=== PATIENT | male | born 1980 | race Caucasian/White ===

== ENCOUNTER 2023-06-06 08:30 | Emergency (ER) | payer OTHER, SELFPAY ==
[2023-06-06 08:35] VITALS: BP 146/95; PULSE 97; RESP 16; TEMP 37; O2SAT 98; BMI 25.8
--- NOTE | 2023-06-06 10:07 | ED.GENADULT ---
HPI - General Adult General Chief complaint: General Medical Stated complaint: unable to sleep Time Seen by Provider: 06/06/23 09:50 Source: patient and RN notes reviewed Mode of arrival: ambulatory Limitations: no limitations History of Present Illness HPI narrative: This is a 43-year-old male, with no known past medical history presenting to the department for evaluation of difficulty sleeping x5 days. Patient states that he was stung by a bee on his left upper arm while attending the be 5 days ago. He states that he took 4 tablets of Benadryl. He states that since then he has had significant difficulty with sleeping. He states that the difficulty is with falling asleep and staying asleep. He states that he is unable to turn off the thoughts in his head, and also states that he gets restless legs. He admits to having some increased stressors reporting a recent break-up. He also reports that he has been drinking lots of water which has causing him to have increased urination. He states urinary frequency, denies any dysuria, hematuria, or urgency. Denies history of urinary tract infections. Denies any penile discharge or rashes. He states that he was previously sexually active, last sexual encounter was 6 months ago. Denies any fevers, chills, weight changes, chest pain, shortness breath, abdominal pain, nausea, vomiting or diarrhea. He admits to having some palpitations throughout the night. No other complaints or concerns at this time. MD complaint: Insomnia Onset (ago): day(s) Radiation: non-radiation Relieving factors: none Exacerbating factors: none Associated symptoms: denies other symptoms Treatments prior to arrival: none Related Data Previous Rx's Medication Instructions Recorded hydroxyzine HCl 50 mg tablet 50 mg PO BEDTIME PRN insomnia #20 06/06/23 tabs Allergies Allergy/AdvReac Type Severity Reaction Status Date / Time No Known Allergies Allergy Verified 06/06/23 08:35 Review of Systems Review of Systems: Yes all other systems are reviewed and are negative Constitutional: Constitutional: Reports as per [facility] Past Medical History Attestation statement: The following information was validated with the patient. Social History Social History Advance Directives: No Physical Exam ED Vital Signs: Vital Signs - 24 hr 06/06/23 08:35 06/06/23 12:10 Temperature 98.6 F 98.4 F Pulse Rate 97 77 Respiratory Rate 16 16 Blood Pressure 146/95 H 131/82 Pulse Oximetry 98 97 Oxygen Delivery Method Room Air Room Air BMI result Body Mass Index 25.8 Const General: cooperative, comfortable and no acute distress Orientation/consciousness: patient oriented x3 Limitations: no limitations HENMT Head: Yes normal to inspection, Yes normocephalic and Yes atraumatic Ears: hearing grossly normal bilaterally General nose exam: Normal external nose present Face and sinus: Yes normal facial exam Mouth: Normal oral and palatal mucosa present, oropharynx normal and moist mucous membranes Throat: Yes posterior oropharynx normal Eyes General: appearance normal, both eyes and all related structures Eyelids: Yes eyelids normal Conjunctivae: conjunctivae normal Sclerae: sclerae normal Pupils: Equal, round and reactive pupils present EOM: EOMs intact bilaterally Neck Neck: Yes normal visual inspection, Yes full ROM and Yes no lymphadenopathy Lymphatic: no lymphadenopathy noted Chest Chest palpation & inspection: normal inspection of the chest Resp Effort & Inspection: normal respiratory effort and able to speak in complete sentences Auscultation: clear to auscultation bilaterally, no crackles, no rales, no rhonchi and no wheezes Cardio Rate: regular rate Rhythm: regular rhythm Heart sounds: S1 normal heart sound present and S2 normal heart sound present GI Inspection: Yes normal to inspection General: Yes no CVA tenderness Back/Spine/Pelvis Back: no CVA tenderness Skin General skin exam: no rashes or lesions noted Trauma: no lacerations or abrasions Wounds: no wounds Neuro General: patient oriented x3 and moves all extremities Cranial nerves: Yes Equal, round and reactive pupils present Extrem General: Yes normal to inspection Right upper extremity: normal to inspection Left upper extremity: normal to inspection Right lower extremity: normal to inspection Left lower extremity: normal to inspection Course Reevaluation(s) Reevaluation #1: EKG normal, urine without any evidence of infection, labs within normal limits, patient tested negative for chlamydia gonorrhea. Symptoms of insomnia are unclear however given extensive sleep hygiene techniques as well as hydroxyzine. Encouraged to follow-up with primary care physician regarding this visit, encouraged to call today. Discussed return precautions. Patient understands and agrees with plan. Patient stable for discharge. Time: 12:20 Medical Decision Making Medical Decision Making MDM Narrative: 43-year-old male presenting to the emergency department for evaluation of difficulty sleeping for the last 5 days. He states this all began after taking 4 tablets of Benadryl 5 days ago after being stung by a bee. He states trouble with falling asleep and staying asleep. He also endorses palpitations, denies any chest pain. On examination, patient with normal affect. Blood pressure mildly elevated at 140 6/95, all other vital signs within normal limits. Differential diagnoses include electrolyte abnormality, adverse medication reaction, anxiety, hyperthyroid. ACS unlikely however given palpitations will obtain troponin and EKG. Also reporting urinary frequency - will obtain UA for further evaluation. Also testing for any gc/chlamydia. Differential Diagnosis Differential Diagnoses: The differential diagnosis associated with the presentation includes See above Lab Data MDM Lab Attestation statement: I reviewed the patient's lab results. No leukocytosis. Electrolytes within normal limits. 06/06/23 08:44 06/06/23 08:44 Labs: Lab Results 06/06/23 06/06/23 Range/Units 08:44 10:29 WBC 8.8 (4.8-10.8) X10*3/uL RBC 5.97 H (4.60-5.80) X10*6/uL Hgb 18.2 H (14.0-18.0) g/dl Hct 51.8 (42.0-52.0) % MCV 86.8 (80.0-98.0) fL MCH 30.5 (27.0-33.0) pg MCHC 35.1 (31.0-36.0) g/dl RDW 11.6 (11.0-16.0) % Plt Count 270 (160-400) X10*3/uL MPV 9.2 L (9.4-12.4) fL Immature Gran % (Auto) 0.2 (0.0-0.4) % Neut % (Auto) 72.3 (45-73) % Lymph % (Auto) 14.3 L (20-40) % [place] % (Auto) 10.9 (2-11) % Eos % (Auto) 1.5 (0-4) % Baso % (Auto) 0.8 (0-2) % Lymph # (Auto) 1.3 (1.2-4.9) X10*3/uL [place] # (Auto) 1.0 (0.1-1.2) X10*3/uL Eos # (Auto) 0.1 (0.0-0.4) X10*3/uL Baso # (Auto) 0.1 (0.0-0.2) X10*3/uL Abs Immat Gran (auto) 0.02 (0.00-0.03) X10*3/uL Absolute Neuts (auto) 6.4 (2.0-8.3) x10*3/uL Absolute Nucleated RBC 0.000 (0.0-0.012) X10*3/uL Nucleated RBC % (auto) 0.0 (0.0-0.2) /100WBC Sodium 137 (135-145) mmol/L Potassium 4.3 (3.3-5.1) mmol/L Chloride 100 (96-108) mmol/L Carbon Dioxide 25 (22-29) mmol/L Anion Gap 16 (12-20) BUN 12 (9-16) mg/dL Creatinine 0.83 (0.5-1.4) mg/dL Estim Creat Clear Calc 124.7 Estimated GFR > 60 Random Glucose 84 (60-115) mg/dL Calcium 9.9 (8.4-10.2) mg/dL Troponin I High Sens < 2.7 (<3.5-35.0) ng/L TSH 2.42 (0.32-4.0) uIU/mL Urine Color Yellow Urine Appearance Clear Urine pH 7.0 (5.0-9.0) Ur Specific [place] <= 1.005 (1.005-1.025) Urine Protein Negative (Neg-Trace) mg/dL Urine Glucose (UA) Negative (Negative) mg/dL Urine Ketones Negative (Negative) mg/dL Urine Blood Negative (Negative) Urine Nitrite Negative (Negative) Ur Leukocyte Esterase Negative (Negative) Chlam trachomat DNA PCR NOT DETECTED (Not Detect.) N.gonorrhoeae DNA (PCR) NOT DETECTED (Not Detect.) Independent Interpretation I performed an independent interpretation of an: EKG Interpretation: Normal sinus rhythm at a ventricular rate of 78 beats per minute, TX interval 162, QTC 405. No ST elevation or depression. External Record Review External record reviewed: Inpatient record, Office record, Outpatient record, Prior outpatient labs, Prior outpatient radiology, Primary care record and Outside ED record Discharge Plan Discharge Clinical Impression: Insomnia Qualifiers: Insomnia type: unspecified Qualified Code(s): G47.00 - Insomnia, unspecified Patient Disposition: Home, Self-Care Instructions: Insomnia (ED) Additional Instructions: You were seen at the emergency department due to difficulty sleeping and restless legs. Your work up today was reassuring. Your urine does not appear to be infected, you tested negative for gonorrhea/chlamydia. Your EKG was normal. Your thyroid levels were within normal limits. Please drink plenty of fluids, exercise. Practice good sleep hygiene techniques including limited screen time use prior to bed, using bedroom for sleep purposes only, avoid caffeine intake. Please follow-up with your primary care physician, call today to make an appointment. Please use prescribed medication as directed - I would advise you to take this medication tonight rather than mid day to encourage your sleep cycle to be back on track. If any new or worsening symptoms occur including but not limited to chest pain, worsening palpitations, please return for re-evaluation. Prescriptions: New hydroxyzine HCl 50 mg tablet 50 mg PO BEDTIME PRN (Reason: insomnia) Qty: 20 0RF
[2023-06-06 12:10] VITALS: BP 131/82; PULSE 77; RESP 16; TEMP 36.9; O2SAT 97
== END 2023-06-06 12:29 | disposition home or self-care (01) ==
PROVIDERS: Emergency Provider Emergency Medicine; PCP Internal Medicine
DX: G47.00 Insomnia, unspecified (principal); R94.31 Abnormal electrocardiogram [ECG] [EKG]; Z79.899 Other long term (current) drug therapy
CPT/HCPCS: 0353U; 36415; 80048; 81003; 84443; 84484; 85025; 93005; 99283; 99284

== ENCOUNTER 2023-06-11 13:57 | Emergency (ER) | payer OTHER, SELFPAY ==
[2023-06-11 14:10] VITALS: BP 133/85; BP 142/80; PULSE 95; PULSE 96; RESP 16; TEMP 37.1; O2SAT 100; O2SAT 97; BMI 25.8
--- NOTE | 2023-06-11 14:12 | ED.GENADULT ---
HPI - General Adult General Chief complaint: General Medical Stated complaint: RESTLESS LEG SYNDROME Time Seen by Provider: 06/11/23 14:57 Source: patient, EMS and RN notes reviewed Mode of arrival: EMS Limitations: no limitations History of Present Illness HPI narrative: Patient is a 43-year-old male with no reported past medical history presenting the emergency department with mother and sister with complaint of insomnia for the past 11 days. He also complains of a warm sensation in his left arm when he moves it. He denies pain, numbness, tingling, weakness to his left arm. He denies any chest pain or shortness of breath. He reports that symptoms began after being stung by a bee, following that he used Benadryl and states that since that time he has not been able to sleep. He was seen in this emergency department on 06/06 and prescribed hydroxyzine. He states that he has used this each night since being evaluated here and has still been unable to sleep. Patient states that he contacted his PCP but was told he could not be seen any time soon. Patient stating that he feels as though he is having a heart attack because I can smell my arm burning. He denies any suicidal or homicidal ideation. He denies any auditory or visual hallucinations. States that he has never previously seen a therapist or psychiatrist. Sister reports that patient has had increasingly bizarre behavior over the past 11 days. MD complaint: insomnia Onset (ago): week(s) Location: left and upper extremity Radiation: non-radiation Severity: moderate Quality: other ( warm sensation ) Associated symptoms: denies other symptoms Treatments prior to arrival: other (hydroxyzine) Related Data Previous Rx's Medication Instructions Recorded hydroxyzine HCl 50 mg tablet 50 mg PO BEDTIME PRN insomnia #20 06/06/23 tabs Allergies Allergy/AdvReac Type Severity Reaction Status Date / Time No Known Allergies Allergy Verified 06/06/23 08:35 Review of Systems Review of Systems: As per HPI. Yes all other systems are reviewed and are negative Constitutional: Constitutional: Reports as per HPI [facility] Social History Social History Advance Directives: No Advance Directives Information Provided: Yes Physical Exam ED Vital Signs: Vital Signs - 24 hr 06/11/23 14:10 Temperature 98.8 F Pulse Rate 96 Respiratory Rate 16 Blood Pressure 133/85 Pulse Oximetry 97 Oxygen Delivery Method Room Air BMI result Body Mass Index 25.8 Vital signs have been reviewed and appear to be correct. Blood pressure normal. Heart rate normal. Respiratory rate normal. Temperature normal. Oxygen saturation normal. Const General: cooperative, healthy appearing and no acute distress Orientation/consciousness: oriented to person, oriented to place, oriented to time and patient oriented x3 Limitations: no limitations HENMT Head: Yes normocephalic and Yes atraumatic Ears: external ears normal General nose exam: Normal external nose present Face and sinus: Yes face symmetric Mouth: oropharynx normal and moist mucous membranes Throat: Yes uvula midline Eyes Pupils: Equal, round and reactive pupils present Neck Neck: Yes normal visual inspection and Yes supple Resp Effort & Inspection: normal respiratory effort and able to speak in complete sentences Auscultation: clear to auscultation bilaterally Cardio Rate: regular rate Rhythm: regular rhythm Heart sounds: S1 normal heart sound present and S2 normal heart sound present GI Palpation (GI): Soft to palpation and nontender Auscultation: normoactive bowel sounds General: Yes no CVA tenderness Back/Spine/Pelvis Back: no CVA tenderness Skin General skin exam: elasticity normal and turgor normal Neuro General: oriented to person, oriented to place, oriented to time, patient oriented x3, moves all extremities, no focal motor deficits and CN's II-XI intact bilaterally Cranial nerves: Yes Equal, round and reactive pupils present Cognition (Neuro): normal cognition Extrem General: Yes full ROM, Yes no pedal edema and Yes no calf tenderness Psych Appearance: grossly normal Mental Status: mental status grossly normal Speech and movement: Normal speech and movement present Affect: normal affect Attitude: cooperative Thought process: Illogical thought process present Thought content: suicidality, no homicidality and Hallucination(s) present tactile (Stating that he feels as though he is having a heart attack because he can feel the skin on his arm burning) Insight: Fair insight present (Psych) Judgement: Fair judgement present (Psych) Course Course Course Narrative: This is a rapid medical exam. Deferred additional HPI, ROS, PE to primary provider. 43 yo male here with complaints of difficulty sleeping x 11 days. Seen here for 06/06 for same and prescribed prn hydroxzyine but feels this is not helping. Does not have a PCP to follow-up with. NO SI/HI. VSS Reevaluation(s) Reevaluation #1: 06/11/2023 1919: Patient and family requesting the patient to be discharged. Patient continues to decline HI/SI. Patient cleared for discharge. Medical Decision Making Medical Decision Making [facility] Narrative: Patient is a 43-year-old male with no reported past medical history presenting the emergency department with mother and sister with complaint of insomnia for the past 11 days. On exam patient is awake, A+Ox3, VS WNL, afebrile, normal neurological exam without focal deficits, physical exam findings as above. Given reported symptoms and physical exam findings, initial differential includes insomnia, anxiety, hallucinations. Patient was seen and evaluated in the emergency department on 06/06/2023, had extensive workup with no acute abnormal findings. Patient was prescribed hydroxyzine at that time which he states has not improved his insomnia. Family expressing concern regarding patient's behavior and thought process. Patient and family are agreeable to Care Team evaluation. 18:12 Labs within normal limits, Covid swab negative. No evidence of infection on UA. EKG shows normal sinus rhythm. Patient medically cleared at this time for CARE team eval and placed on physician observation. Differential Diagnosis Differential Diagnoses: The differential diagnosis associated with the presentation includes As per MDM. Admission/Observation Consideration of admission/observation: Escalation of care including admission/observation considered Lab Data [facility] Lab Attestation statement: I reviewed the patient's lab results. As per MDM. 06/11/23 16:25 06/11/23 16:25 Labs: Lab Results 06/11/23 Range/Units 16:25 WBC 10.5 (4.8-10.8) X10*3/uL RBC 5.79 (4.60-5.80) X10*6/uL Hgb 17.7 (14.0-18.0) g/dl Hct 50.5 (42.0-52.0) % MCV 87.2 (80.0-98.0) fL MCH 30.6 (27.0-33.0) pg MCHC 35.0 (31.0-36.0) g/dl RDW 11.7 (11.0-16.0) % Plt Count 274 (160-400) X10*3/uL MPV 9.2 L (9.4-12.4) fL Immature Gran % (Auto) 0.2 (0.0-0.4) % Neut % (Auto) 66.8 (45-73) % Lymph % (Auto) 19.1 L (20-40) % [place] % (Auto) 10.7 (2-11) % Eos % (Auto) 2.4 (0-4) % Baso % (Auto) 0.8 (0-2) % Lymph # (Auto) 2.0 (1.2-4.9) X10*3/uL [place] # (Auto) 1.1 (0.1-1.2) X10*3/uL Eos # (Auto) 0.3 (0.0-0.4) X10*3/uL Baso # (Auto) 0.1 (0.0-0.2) X10*3/uL Abs Immat Gran (auto) 0.02 (0.00-0.03) X10*3/uL Absolute Neuts (auto) 7.0 (2.0-8.3) x10*3/uL Absolute Nucleated RBC 0.000 (0.0-0.012) X10*3/uL Nucleated RBC % (auto) 0.0 (0.0-0.2) /100WBC Sodium 139 (135-145) mmol/L Potassium 4.1 (3.3-5.1) mmol/L Chloride 104 (96-108) mmol/L Carbon Dioxide 24 (22-29) mmol/L Anion Gap 15 (12-20) BUN 15 (9-16) mg/dL Creatinine 0.83 (0.5-1.4) mg/dL Estim Creat Clear Calc 124.7 Estimated GFR > 60 Random Glucose 99 (60-115) mg/dL Calcium 9.7 (8.4-10.2) mg/dL Urine Color Dark Yellow Urine Appearance Clear Urine pH 7.0 (5.0-9.0) Ur Specific [place] 1.010 (1.005-1.025) Urine Protein Negative (Neg-Trace) mg/dL Urine Glucose (UA) Negative (Negative) mg/dL Urine Ketones Negative (Negative) mg/dL Urine Blood Negative (Negative) Urine Nitrite Negative (Negative) Ur Leukocyte Esterase Negative (Negative) Salicylates < 5.0 L (15-30) mg/dL Urine Opiates Screen Not Detected (Not Detect) Urine Fentanyl Screen Not Detected (Not Detect) Acetaminophen < 17 (<30) mcg/mL Ur Barbiturates Screen Not Detected (Not Detect) Ur Phencyclidine Scrn Not Detected (Not Detect) Ur Amphetamines Screen Not Detected (Not Detect) U Benzodiazepines Scrn Not Detected (Not Detect) Urine Cocaine Screen Not Detected (Not Detect) U Marijuana (THC) Screen POSITIVE H (Not Detect) Ethyl Alcohol < 10 mg/dL COVID-19 ([facility]) Negative (Negative) COVID-19 Clin Com See Note Independent Interpretation I performed an independent interpretation of an: EKG Interpretation: Normal sinus rhythm, rate 90 beats per minute, normal AR and QT intervals, no evidence of STEMI Independent Historian Clinical information obtained from an independent historian. History obtained from or confirmed by: Parent and Other (Sister) External Record Review External record reviewed: Inpatient record, Office record and Outpatient record Discharge Plan Discharge Clinical Impression: Insomnia Patient Disposition: Home, Self-Care Instructions: Insomnia (ED) Additional Instructions: Follow up with your primary care provider. Return to the emergency department immediately if your symptoms worsen or if you develop any dizziness, shortness of breath, difficulty breathing, chest pain, blurry vision, loss of vision, nausea, vomiting, abdominal pain, fever, chills, back pain, or any other complaints. [facility]: [address], [place] [id number] Walk in hours from 10am - 12pm Open from 10am - 12pm [facility] Crisis Services: [address] [place] [address] Walk in hours from 10am - 12pm Open [facility]: [address] [place] [address] [place] [id number] Hours: M-F 8am to 8pm Tuesday and Tuesday 9am to 5pm Prescriptions: No Action hydroxyzine HCl 50 mg tablet 50 mg PO BEDTIME PRN (Reason: insomnia) Qty: 20 0RF Referrals: Spenser Neely DO [Primary Care Provider] - Print Language: Bengali
--- NOTE | 2023-06-11 15:48 | ECG_ITS ---
Test Reason : MEDICAL CLEARANCE Blood Pressure : / mmHG Vent. Rate : 090 BPM Atrial Rate : 090 BPM P-R Int : 146 ms QRS Dur : 078 ms QT Int : 334 ms P-R-T Axes : 056 079 071 degrees QTc Int : 408 ms Normal sinus rhythm RSR' or QR pattern in V1 suggests right ventricular conduction delay Otherwise normal ECG When compared with ECG of 06-JUN-2023 10:22, No significant change was found Referred By: Lashay Moreno Electronically Signed By:LILIANA VALENTINE MD
[2023-06-11 16:29] LABS: MANUAL DIFF FLAG NO
[2023-06-11 16:31] LABS: Basophils Absolute Auto 0.1 X10*3/uL (0.0-0.2); Basophils Percent Auto 0.8 % (0-2); Eosinophils Absolute Auto 0.3 X10*3/uL (0.0-0.4); Eosinophils Percent Auto 2.4 % (0-4); Hematocrit 50.5 % (42.0-52.0); Hemoglobin 17.7 g/dl (14.0-18.0); Imm Gran Abs Auto 0.02 X10*3/uL (0.00-0.03); Imm Gran Pct Auto 0.2 % (0.0-0.4); Lymphocytes Percent Auto 19.1 % (20-40); Mean Corpuscular Hemoglobin 30.6 pg (27.0-33.0); Mean Corpuscular Volume 87.2 fL (80.0-98.0); Mean Platelet Volume 9.2 fL (9.4-12.4); Monocytes Absolute Auto 1.1 X10*3/uL (0.1-1.2); Monocytes Percent Auto 10.7 % (2-11); Neutrophils Percent Auto 66.8 % (45-73); Platelet Count 274 X10*3/uL (160-400); Red Blood Count 5.79 X10*6/uL (4.60-5.80); Red Cell Distribution Width 11.7 % (11.0-16.0); White Blood Count 10.5 X10*3/uL (4.8-10.8)
[2023-06-11 16:33] LABS: Appearance Urine Clear; Color Urine Dark Yellow; Glucose Urine UA Negative (Negative); Leukocyte Esterase Urine Negative (Negative); Nitrite Urine Negative (Negative); Urine Blood Negative (Negative); Urine Ketones Negative (Negative); Urine Protein Negative (Neg-Trace)
[2023-06-11 16:47] LABS: Acetaminophen LAB < 17 mcg/mL (<30); Anion Gap 15 (12-20); Blood Urea Nitrogen 15 mg/dL (9-16); Calcium 9.7 mg/dL (8.4-10.2); Carbon Dioxide 24 mmol/L (22-29); Chloride 104 mmol/L (96-108); Creatinine Clr Calc Pharmacy 124.7; Estimated Glomerular Filt Rate > 60; Ethanol < 10 mg/dL; Glucose Random 99 mg/dL (60-115); Potassium 4.1 mmol/L (3.3-5.1); Sodium 139 mmol/L (135-145)
[2023-06-11 16:48] LABS: COVID-19 Test Negative (Negative); IDNOW Serial# 6674DD1D
[2023-06-11 17:06] LABS: Salicylate < 5.0 mg/dL (15-30)
[2023-06-11 18:08] LABS: Amphetamine Screen Urine Not Detected (Not Detect); Barbiturates, Urine Not Detected (Not Detect); Benzodiazepines Screen Urine Not Detected (Not Detect); Cannabinoid Screen Urine POSITIVE (Not Detect); Cocaine Screen Urine Not Detected (Not Detect); Fentanyl, urine Not Detected (Not Detect); Opiate Screen Urine Not Detected (Not Detect); Phencyclidine Screen Urine Not Detected (Not Detect)
== END 2023-06-11 19:23 | disposition home or self-care (01) ==
PROVIDERS: Registered Nurse Emergency; Emergency Provider Emergency Medicine; PCP Internal Medicine
DX: G47.00 Insomnia, unspecified (principal); R20.2 Paresthesia of skin; Z11.52 Encounter for screening for COVID-19
CPT/HCPCS: 80048; 80143; 80179; 80307; 81003; 85025; 87635; 93005; 99283

== ENCOUNTER 2023-12-12 19:49 | Emergency (ER) | payer MEDICAID, SELFPAY ==
[2023-12-12 19:59] VITALS: BP 128/90; BP 131/88; PULSE 64; PULSE 66; RESP 16; TEMP 37; O2SAT 100; O2SAT 96; BMI 21.8
[2023-12-12 20:11] LABS: MANUAL DIFF FLAG NO
[2023-12-12 20:13] LABS: Basophils Absolute Auto 0.1 X10*3/uL (0.0-0.2); Basophils Percent Auto 0.8 % (0-2); Eosinophils Absolute Auto 0.1 X10*3/uL (0.0-0.4); Eosinophils Percent Auto 1.2 % (0-4); Hemoglobin 16.2 g/dl (14.0-18.0); Imm Gran Abs Auto 0.02 X10*3/uL (0.00-0.03); Imm Gran Pct Auto 0.3 % (0.0-0.4); Lymphocytes Absolute Auto 1.9 X10*3/uL (1.2-4.9); Lymphocytes Percent Auto 24.6 % (20-40); Mean Corpuscular Hemoglobin 30.7 pg (27.0-33.0); Mean Corpuscular Volume 85.4 fL (80.0-98.0); Monocytes Absolute Auto 0.7 X10*3/uL (0.1-1.2); Monocytes Percent Auto 9.3 % (2-11); Neutrophils Absolute Auto 4.9 x10*3/uL (2.0-8.3); Neutrophils Percent Auto 63.8 % (45-73); Platelet Count 225 X10*3/uL (160-400); Red Blood Count 5.27 X10*6/uL (4.60-5.80); Red Cell Distribution Width 11.7 % (11.0-16.0); White Blood Count 7.7 X10*3/uL (4.8-10.8)
[2023-12-12 20:14] VITALS: BP 131/88; PULSE 66; RESP 14; TEMP 36.7; O2SAT 100
--- NOTE | 2023-12-12 20:27 | PC.NURSE ---
pt biba from home, a&ox4, respirations even and unlabored, pt reporting onset of abdominal pain since May, reports hx of small bowel obstruction. pt also reports he thinks there is a blockage in his throat, pt speaking in full clear sentences, and throat is patent upon inspection. pt 18G placed in left AC, labs obtained and sent.
[2023-12-12 20:33] LABS: Alanine Aminotransferase 16 U/L (0-40); Albumin Level 4.7 g/dL (3.5-5.0); Alkaline Phosphatase 56 U/L (39-117); Anion Gap 15 (12-20); Aspartate Amino Transferase 20 U/L (5-37); Bilirubin Total 1.9 mg/dL (0.0-1.0); Blood Urea Nitrogen 21 mg/dL (9-16); Calcium 9.7 mg/dL (8.4-10.2); Carbon Dioxide 26 mmol/L (22-29); Chloride 102 mmol/L (96-108); Creatinine Clr Calc Pharmacy 98.3; Estimated Glomerular Filt Rate > 60; Glucose Random 98 mg/dL (60-115); Potassium 3.7 mmol/L (3.3-5.1); Sodium 139 mmol/L (135-145); Total Protein 7.6 g/dL (6.5-8.0)
--- NOTE | 2023-12-12 22:16 | ED_ITS ---
HPI - General Adult General Chief complaint: General Medical Stated complaint: Constipation Time Seen by Provider: 12/12/23 22:14 Source: patient Mode of arrival: ambulatory Limitations: no limitations History of Present Illness HPI narrative: Patient history of anxiety comes here for 1 week of difficulty in eating food feel throat closing whenever he eats has not been moving his bowels for last 1 week feels very anxious vomited 1 time no significant abdominal pain Related Data Previous Rx's ?Medication ?Instructions ?Recorded hydroxyzine HCl 50 mg tablet 50 mg PO BEDTIME PRN insomnia #20 06/06/23 tabs lorazepam 1 mg tablet (Ativan) 1 mg PO DAILY PRN anxiety #14 tabs 12/12/23 Allergies Allergy/AdvReac Type Severity Reaction Status Date / Time No Known Allergies Allergy Verified 12/12/23 20:03 Review of Systems 2 Review of Systems: Yes all other systems are reviewed and are negative [facility] Social History Social History Smoked in Last 30 Days: No Use of substances other than those prescribed or required for medical reasons: No Advance Directives: No Advance Directives Information Provided: No Physical Exam ED Vital Signs: Vital Signs - 24 hr 12/12/23 19:59 12/12/23 20:14 12/12/23 22:35 Temperature 98.6 F 98.1 F 97.8 F Pulse Rate 66 66 59 Respiratory Rate 16 14 17 Blood Pressure 131/88 131/88 112/75 Pulse Oximetry 96 100 98 Oxygen Delivery Method Room Air Room Air BMI result Body Mass Index 21.8 Appearance: Alert. Oriented X3. No acute distress. Anxious Eyes: No pallor or icterus ENT: Pharynx normal. Oral Mucosa moist Neck: Normal inspection. Neck supple. CVS: Normal heart rate and rhythm. Pulses normal. Respiratory: No respiratory distress. Equal air entry bilateral, no wheezing/rales/rhonchi Abdomen: Soft and nontender. Bowel sounds are present, no mass palpable, no CVA tenderness Skin: Skin warm and dry. Normal skin color. Normal skin turgor. Extremities: No lower extremity edema. No calf tenderness Neuro: Oriented X 3. Medications Administered Discontinued Medications Generic Name Dose Route Start Last Admin Trade Name Freq PRN Reason Stop Dose Admin Sodium Chloride 1,000 mls @ 999 mls/hr 12/12/23 22:22 04/15/24 22:34 Ns IV 12/12/23 23:22 999 mls/hr .Q1H1M ONE Administration Lorazepam 2 mg 12/12/23 22:22 12/12/23 22:36 Lorazepam 2 Mg/Ml Vial IVPUSH 12/12/23 22:23 2 mg ONCE ONE Administration Ondansetron HCl 4 mg 12/12/23 22:22 12/12/23 22:36 Ondansetron Hcl 4 Mg/2 Ml Vial IVPUSH 12/12/23 22:23 4 mg ONCE ONE Administration Medical Decision Making Medical Decision Making 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 Lab Attestation statement: I reviewed the patient's lab results. 12/12/23 20:05 12/12/23 20:05 Labs: Lab Results 12/12/23 Range/Units 20:05 WBC 7.7 (4.8-10.8) X10*3/uL RBC 5.27 (4.60-5.80) X10*6/uL Hgb 16.2 (14.0-18.0) g/dl Hct 45.0 (42.0-52.0) % MCV 85.4 (80.0-98.0) fL MCH 30.7 (27.0-33.0) pg MCHC 36.0 (31.0-36.0) g/dl RDW 11.7 (11.0-16.0) % Plt Count 225 (160-400) X10*3/uL MPV 10.0 (9.4-12.4) fL Immature Gran % (Auto) 0.3 (0.0-0.4) % Neut % (Auto) 63.8 (45-73) % Lymph % (Auto) 24.6 (20-40) % [place] % (Auto) 9.3 (2-11) % Eos % (Auto) 1.2 (0-4) % Baso % (Auto) 0.8 (0-2) % Lymph # (Auto) 1.9 (1.2-4.9) X10*3/uL [place] # (Auto) 0.7 (0.1-1.2) X10*3/uL Eos # (Auto) 0.1 (0.0-0.4) X10*3/uL Baso # (Auto) 0.1 (0.0-0.2) X10*3/uL Abs Immat Gran (auto) 0.02 (0.00-0.03) X10*3/uL Absolute Neuts (auto) 4.9 (2.0-8.3) x10*3/uL Absolute Nucleated RBC 0.000 (0.0-0.012) X10*3/uL Nucleated RBC % (auto) 0.0 (0.0-0.2) /100WBC Sodium 139 (135-145) mmol/L Potassium 3.7 (3.3-5.1) mmol/L Chloride 102 (96-108) mmol/L Carbon Dioxide 26 (22-29) mmol/L Anion Gap 15 (12-20) BUN 21 H (9-16) mg/dL Creatinine 0.99 (0.5-1.4) mg/dL Estim Creat Clear Calc 98.3 Estimated GFR > 60 Random Glucose 98 (60-115) mg/dL Calcium 9.7 (8.4-10.2) mg/dL Total Bilirubin 1.9 H (0.0-1.0) mg/dL AST 20 (5-37) U/L ALT 16 (0-40) U/L Alkaline Phosphatase 56 (39-117) U/L Total Protein 7.6 (6.5-8.0) g/dL Albumin 4.7 (3.5-5.0) g/dL Discharge Plan Discharge Clinical Impression: Anxiety Patient Disposition: Home, Self-Care Instructions: Anxiety (ED) Additional Instructions: Take medication as prescribed by your psychiatrist Drink plenty of fluids Ativan for severe anxiety Follow-up with your therapist Prescriptions: New lorazepam [Ativan] 1 mg tablet 1 mg PO DAILY PRN (Reason: anxiety) Qty: 14 0RF No Action hydroxyzine HCl 50 mg tablet 50 mg PO BEDTIME PRN (Reason: insomnia) Qty: 20 0RF Print Language: Thai
[2023-12-12] MEDS: 0.9 % Sodium Chloride 1,000 ML 999 ML IV (22:34)
[2023-12-12 22:35] VITALS: BP 112/75; PULSE 59; RESP 17; TEMP 36.6; O2SAT 98
[2023-12-12] MEDS: LORazepam 2 MG/ML VIAL IVPUSH (22:36)
[2023-12-12] MEDS: ondansetron HCL 4 MG/2 ML VIAL IVPUSH (22:36)
[2023-12-12 23:44] VITALS: BP 112/75; PULSE 59; RESP 17; TEMP 36.6; O2SAT 98
== END 2023-12-12 23:45 | disposition home or self-care (01) ==
PROVIDERS: Emergency Provider Internal Medicine
DX: F41.9 Anxiety disorder, unspecified (principal)
CPT/HCPCS: 36415; 80053; 85025; 96374; 96375; 99284; J2060; J2405